=== PATIENT | female | born 1955 | race Caucasian/White ===

== ENCOUNTER → 2020-12-14 10:51 | Outpatient (CLI) | payer MEDICARE, OTHER, SELFPAY | PROVIDERS: Referring Provider Internal Medicine; Visit Provider Internal Medicine | DX: M85.852 Other specified disorders of bone density and structure, left thigh; Z78.0 Asymptomatic menopausal state; Z13.820 Encounter for screening for osteoporosis | CPT/HCPCS: 77080 ==

== ENCOUNTER → 2021-01-15 07:25 | Outpatient (CLI) | payer MEDICARE, OTHER, SELFPAY ==
--- NOTE | 2021-01-15 | DI.MG.S_ITS ---
BILATERAL DIGITAL SCREENING MAMMOGRAM 3D/2D WITH CAD: 01/15/2021 CLINICAL: Baseline exam. Routine screening. No prior exams were available for comparison. There are scattered fibroglandular elements in both breasts. Current study was also evaluated with a Computer Aided Detection (CAD) system. No significant masses, calcifications, or other findings are seen in either breast. IMPRESSION: NEGATIVE There is no mammographic evidence of malignancy. A 1 year screening mammogram is recommended. This exam was interpreted at Station ID: [id number]. NOTE: For mammograms, a report in lay terms will be sent to the patient. Approximately 15% of breast malignancies will not be visualized mammographically. In the management of a palpable breast mass, a negative mammogram must not discourage biopsy of a clinically suspicious lesion. Electronically Signed By: Conor barrow/obey:01/15/2021 08:36:52 letter sent: Normal Exam ACR BI-RADS Category 1: Negative 3341F
== END ==
PROVIDERS: PCP Internal Medicine; Referring Provider Internal Medicine; Visit Provider Internal Medicine
DX: Z12.31 Encounter for screening mammogram for malignant neoplasm of breast (principal)
CPT/HCPCS: 77063; 77067

== ENCOUNTER → 2022-01-14 10:23 | Outpatient (CLI) | payer MEDICARE, OTHER, SELFPAY ==
--- NOTE | 2022-01-14 | DI.RAD.S_ITS ---
PROCEDURE: XR CHEST 2V INDICATIONS: shortness of breath TECHNIQUE: 2 views of the chest were acquired. COMPARISON: None. FINDINGS: Surgical changes and devices: None. Lungs and pleura: Lungs are clear. No pleural effusions or pneumothorax. Mediastinum: Mediastinal contours are normal. Heart size is normal. Bones and chest wall: No suspicious bony abnormalities. Soft tissues appear unremarkable. IMPRESSION: No acute cardiopulmonary disease. Dictated by: Marly Kirkland M.D. on 01/14/2022 at 17:23 Approved by: Marly Kirkland M.D. on 01/14/2022 at 17:23
== END ==
PROVIDERS: PCP Internal Medicine; Referring Provider Internal Medicine; Visit Provider Internal Medicine
DX: R06.02 Shortness of breath (principal)
CPT/HCPCS: 71046

== ENCOUNTER → 2022-02-05 10:49 | Outpatient (CLI) | payer MEDICARE, OTHER, SELFPAY ==
[2022-02-05 12:19] LABS: COVID19 -Nasal RAPID Negative (Negative)
== END ==
PROVIDERS: PCP Internal Medicine; Referring Provider Internal Medicine; Visit Provider Internal Medicine
DX: Z20.822 Contact with and (suspected) exposure to COVID-19 (principal)
CPT/HCPCS: 87635; C9803

== ENCOUNTER → 2022-02-05 10:51 | Outpatient (CLI) | payer MEDICARE, OTHER, SELFPAY ==
--- NOTE | 2022-02-07 07:53 | PM.PFT.1 ---
Pulmonary Function Test Referral & Results Date Patient Seen: 02/05/22 Requesting provider: Jay Johnson Results: The spirometry demonstrates an FVC of 2.99 L which is 96% of predicted. The FEV1 was measured at 2.29 L which is 96% of predicted. The FEV1/FVC ratio was 76 which is 99% of predicted. Following the administration of bronchodilator there was a 61% improvement in FEF 25-75%. Lung volumes show an SVC of 2.84 L which is 97% of predicted. The diffusing capacity was measured at 24.02 which is 99% of predicted. The maximum voluntary ventilation was normal Interpretation: This study demonstrates normal pulmonary function
== END ==
PROVIDERS: PCP Internal Medicine; Referring Provider Internal Medicine; Visit Provider Internal Medicine
DX: J45.901 Unspecified asthma with (acute) exacerbation (principal); J98.8 Other specified respiratory disorders; Z20.822 Contact with and (suspected) exposure to COVID-19
CPT/HCPCS: 87635; 94060; 94726; 94729; C9803

== ENCOUNTER → 2022-07-16 10:17 | Outpatient (CLI) | payer MEDICARE, OTHER, SELFPAY ==
--- NOTE | 2022-07-17 01:04 | DI.NM.S_ITS ---
DATE OF SERVICE: 07/16/2022 PROCEDURE PERFORMED: Exercise treadmill stress and rest myocardial perfusion imaging with gating to assess ejection fraction and regional wall motion. ORDERING PROVIDER: Marleny Lemus MD. INDICATIONS: The patient is a 67-year-old female with exertional dyspnea and chest discomfort. CARDIAC STRESS: The patient was able to exercise for 7 minutes 5 seconds on a standard Bernardo protocol suggesting very good exercise capacity with an VINICIUS of - 17%, achieving 7.2 METs. She had a normal heart rate and blood pressure response to exercise, achieving a maximum heart rate of 155 BPM (101% of her predicted maximum). She had no chest discomfort or anginal symptoms. Her resting ECG is normal and there are no significant ST-segment shifts or arrhythmias with stress. At 3 minutes, 30 seconds of exercise at a heart rate of 130 BPM, 27.2 millicuries of technetium-99m Myoview was injected and she was imaged 20 minutes later using a gated SPECT acquisition protocol. Earlier in the day while at rest, she had been injected with 12.3 millicuries of technetium-99m Myoview and was imaged 15 minutes later, again using a gated SPECT acquisition protocol. FINDINGS: 1. Raw data: There is fair myocardial tracer uptake with mild breast shadows noted as well as some slight motion noted on the resting images. The lung/heart ratio is normal at 0.35 with a normal TID ratio of 0.85. 2. Quantitated gated SPECT: Post-stress ejection fraction is estimated at 85% without any focal wall motion abnormality. Resting ejection fraction is 82% with a normal resting end-diastolic volume of 83 mL. There is mildly increased tracer uptake in the right ventricular free wall, which can be an indication of a right ventricular overload condition, but is nonspecific. 3. Myocardial perfusion imaging: Post-stress supine images shows a fairly normal myocardial perfusion pattern without any perfusion defects, supported by normal perfusion imaging in the prone position. The resting images show an identical perfusion pattern without any areas of improvement. IMPRESSION: 1. Normal myocardial perfusion study. 2. No evidence of myocardial ischemia or previous myocardial infarction. 3. Normal left ventricular size and function without focal abnormality. There is mild increased tracer uptake in the right ventricle which can be a sign of her right ventricular overload condition but clinical correlation is needed. 4. Very good exercise capacity without angina or ECG evidence of ischemia. There were no arrhythmias. Bella Moraes - Yovany/saud doc#: [id number]/job#: [id number] dd: 07/16/2022 16:24:00 dt: 07/17/2022 00:57:00 DICTATING MD/COPIES TO: Jay Castellon MD; Marleny Lemus MD COPIES MNE: LATOSHA;
== END ==
PROVIDERS: PCP Internal Medicine; Referring Provider Internal Medicine; Visit Provider Internal Medicine
DX: R07.89 Other chest pain (principal); R06.00 Dyspnea, unspecified
CPT/HCPCS: 78452; 93017; A9502

== ENCOUNTER → 2022-07-25 10:09 | Outpatient (CLI) | payer MEDICARE, OTHER, SELFPAY ==
[2022-07-25 10:42] LABS: Estimated Glomerular Filt Rate > 60 mL/min (>60)
--- NOTE | 2022-07-25 10:49 | DI.CT.S_ITS ---
PROCEDURE: CT ANGIO CHEST PE PROTOCOL INDICATIONS: PULMONARY EMBOLISM SUSPECTED TECHNIQUE: After the administration of intravenous contrast, 2 mm thick sections acquired from the pulmonary apices to the posterior costophrenic angles. 3-dimensional maximum intensity projection (MIP) coronal and sagittal reformats were then acquired through the thorax. For radiation dose reduction, the following was used: automated exposure control, adjustment of mA and/or kV according to patient size. COMPARISON: [facility], CR, XR CHEST 2V, 01/14/2022, 11:38. FINDINGS: Image quality: Excellent. Pulmonary arteries: Pulmonary arteries are normal in size, and demonstrate no intraluminal filling defects to suggest central pulmonary embolism. Lungs and pleura: Minimal bilateral ground-glass opacity. No consolidative opacity. No pleural effusions or pneumothorax. Central and peripheral airways are patent. Mediastinum: Heart size is normal, without pericardial effusion. No mediastinal or hilar adenopathy. Thoracic aorta is normal in caliber and enhancement. Esophagus is normal in caliber, possible small hiatal hernia. Bones and chest wall: No suspicious bony lesions. Ribs and thoracic spine appear intact throughout. Right thyroid nodule measuring 1.2 cm, (4/2). No axillary or supraclavicular adenopathy. Abdomen: Visualized upper abdominal solid organs appear normal in the early arterial phase of enhancement. Gallstone measuring 1.8 cm. IMPRESSION: 1. No pulmonary embolism. No aortic dissection. 2. Minimal bilateral ground-glass opacity. This could be due to infectious/inflammatory etiology or atelectasis. 3. Right thyroid nodule measuring 1.2 cm. Consider thyroid ultrasound for further evaluation. Dictated by: Conor Vela M.D. on 07/25/2022 at 11:03 Approved by: Conor Vela M.D. on 07/25/2022 at 11:11
== END ==
PROVIDERS: Specialist; PCP Internal Medicine; Referring Provider Internal Medicine; Visit Provider Internal Medicine
DX: R07.2 Precordial pain (principal); E04.1 Nontoxic single thyroid nodule
CPT/HCPCS: 36415; 71275; 82565; Q9967

== ENCOUNTER → 2022-07-29 11:41 | Outpatient (CLI) | payer MEDICARE, OTHER, SELFPAY ==
[2022-07-29 11:59] LABS: Add Manual Diff / Slide Review NO; Basophils Absolute Auto 100 /uL (0-100); Eosinophils Absolute Auto 0 /uL (0-450); Eosinophils Percent Auto 0.4 % (2-4); Hematocrit 41.2 % (36-46); Hemoglobin 14.3 g/dL (12.0-16.0); Lymphocytes Absolute Auto 1500 /uL (1100-4500); Lymphocytes Percent Auto 26.5 % (25-40); Mean Corpuscular HGB Conc 34.8 % (30-36); Mean Corpuscular Hemoglobin 31.9 PG (26-34); Mean Corpuscular Volume 91.6 fL (80-100); Monocytes Absolute Auto 300 /uL (0-900); Monocytes Percent Auto 5.6 % (3-14); Neutrophils Absolute Auto 3800 /uL (1500-7000); Neutrophils Percent Auto 66.5 % (50-75); Platelet Count 274 X10^3/uL (150-400); White Blood Cell Count 5.7 X10^3/uL (4.5-11.0)
[2022-07-29 12:20] LABS: Alanine Aminotransferase 22 IU/L (<35); Albumin 4.4 g/dL (3.5-5.0); Albumin Globulin Ratio 1.4 (1.0-2.8); Alkaline Phosphatase 84 U/L (38-126); Aspartate Aminotransferase 28 IU/L (14-36); BUN Creatinine Ratio 18.1 (6-22); Bilirubin Total 0.4 mg/dL (0.2-1.3); Blood Urea Nitrogen 15 mg/dL (7-17); Calcium 8.9 mg/dL (8.4-10.2); Carbon Dioxide 27 mmol/L (22-32); Chloride 105 mmol/L (98-107); Creatine Kinase 34 U/L (30-135); Estimated Glomerular Filt Rate > 60 mL/min (>60); Globulin 3.2 g/dL (1.7-4.1); Glucose 104 mg/dL (80-110); HEMOLYSIS < 15 (0-50); Sodium 139 mmol/L (137-145); Total Protein 7.6 g/dL (6.3-8.2)
[2022-07-29 12:32] LABS: Troponin I < 0.012 ng/mL (0.01-0.034)
[2022-07-29 12:37] LABS: Procalcitonin < 0.03 ng/mL (<0.5)
== END ==
PROVIDERS: PCP Internal Medicine; Referring Provider Student in an Organized Health Care Education/Training Program; Visit Provider Student in an Organized Health Care Education/Training Program
DX: R07.9 Chest pain, unspecified (principal); R93.89 Abnormal findings on diagnostic imaging of other specified body structures; R05.9 Cough, unspecified; E04.1 Nontoxic single thyroid nodule
CPT/HCPCS: 36415; 80053; 82550; 84145; 84443; 84484; 85025

== ENCOUNTER → 2022-08-15 12:13 | Outpatient (CLI) | payer MEDICARE, OTHER, SELFPAY ==
--- NOTE | 2022-08-15 | DI.US.S_ITS ---
PROCEDURE: US THYROID INDICATIONS: Nontoxic single thyroid nodule TECHNIQUE: Real-time scanning was performed of the thyroid gland, with image documentation. COMPARISON: None. FINDINGS: Right: Thyroid lobe measures 4.6 x 1.8 x 1.7 cm, and is heterogeneous in echotexture. A dominant, finally septated, otherwise simple cyst measuring 1.2 cm is present in the deep midpole of the right thyroid. There are several other smaller mixed cystic and solid/spongiform nodules with scattered echogenic reflectors measuring up to 0.8 cm. Left: Thyroid lobe measures 3.5 x 1.5 x 1.1 cm, and is heterogeneous in echotexture. There is a 0.8 cm mm with dependently layering echogenic debris in the midportion of the left thyroid lobe. There is a mixed cystic and solid nodule measuring 0.7 cm also in the mid left thyroid punctate echogenic foci. Isthmus: Five mm thick. There are two mixed cystic and solid nodules within the isthmus measuring up to 0.6 cm. IMPRESSION: 1. Heterogeneous, nonenlarged multinodular thyroid gland with several subcentimeter mixed cystic and solid, some spongiform, nodules with TI-RADS score is ranging from 4-6, moderately suspicious. However given small size, no further follow-up is needed. ACR TI-RADS definitions and recommendations: TI-RADS 1 (benign): 0 points. FNA not needed. TI-RADS 2 (not suspicious): 2 points. FNA not needed. TI-RADS 3 (mildly suspicious): 3 points. * FNA if 2.5 cm or larger, follow up if 1.5 cm or larger (at 1, 3, and 5 years). TI-RADS 4 (moderately suspicious): 4-6 points. * FNA if 1.5 cm or larger, follow up if 1 cm or larger (at 1, 2, 3, and 5 years). TI-RADS 5 (highly suspicious): 7 points or more. * FNA if 1 cm or larger, follow up if 0.5 cm or larger (every year for 5 years). Dictated by: Marly Kirkland M.D. on 08/15/2022 at 23:20 Approved by: Marly Kirkland M.D. on 08/15/2022 at 23:32
== END ==
PROVIDERS: PCP Internal Medicine; Referring Provider Internal Medicine; Visit Provider Internal Medicine
DX: E04.2 Nontoxic multinodular goiter (principal)
CPT/HCPCS: 76536

== ENCOUNTER 2022-08-25 09:09 | Emergency (ER) | payer MEDICARE, OTHER, SELFPAY ==
[2022-08-25] VITALS (7 sets, daily range): BP systolic 133–174; BP diastolic 73–88; PULSE 80–102; RESP 11–17; TEMP 37.4; O2SAT 95–99; BMI 30.4
--- NOTE | 2022-08-25 09:20 | ED_ITS ---
HPI - Arrhythmia/Palpitations General Chief Complaint: Arrhythmia/Palpitations Stated Complaint: sent by [facility] heart issuses Time Seen by Provider: 08/25/22 09:20 History of Present Illness HPI narrative: Patient is a 67-year-old female without significant past medical history presenting today with heart palpitations. She is actually had significant workup it has been ongoing for last couple months. She would a nuclear stress test and a CT angio she is Cardiology tomorrow. However she reports feeling something and heart palpitations. She feels a little nauseous at times she has dizziness but she reports it is likely from her vertigo is not any worse today than normal. No other focal deficits. She is not passed out. She was able to walk this morning without stopping. However she reports she did not go up any heels. She would a normal nuclear stress test in July and a normal CT angio in July as well. She is not yet had an echocardiogram. She is noted to have frequent PACs on the monitor. She reports that she was also diagnosis thyroid problem. Related Data Allergies Allergy/AdvReac Type Severity Reaction Status Date / Time No Known Drug Allergies Allergy Unverified 07/29/22 08:57 Review of Systems Review of Systems ROS Unobtainable: All systems reviewed & are unremarkable except as noted in HPI and below Patient History Social History Smoking Status: Unknown if ever smoked Smoking Status: Unknown if ever smoked Exam Initial Vital Signs Initial Vital Signs: Vital Signs Pulse Rate 102 H 08/25/22 09:13 Pulse Oximetry 99 08/25/22 09:13 GENERAL: Alert pleasant 67-year-old female and in no acute distress. HEENT: Head atraumatic,EOMI, pupils reactive, face symmetric, moist mucous membranes CARDIOVASCULAR: Regular rate and rhythm without murmurs, rubs or gallops. RESPIRATORY: Breath sounds equal bilaterally, no wheezes rales or rhonchi. ABDOMEN: Soft, nontender. Normoactive bowel sounds all 4 quadrants. No guarding or rebound. EXTREMITIES: Normal range of motion, no clubbing or edema. Neurovascularly intact NEUROLOGICAL: Alert and oriented x4. SKIN: Warm, dry, no laceration, no petechiae, no rashes or lesions. Course Orders Ordered: ED Orders 08/25/22 09:18 Complete Blood Count AUTO DIFF Stat Comprehensive Metabolic Panel Stat Lipase Stat Magnesium Stat PTT Partial Thromboplastin Pillo Stat Prothrombin Time INR Stat Troponin & CK Cardiac Panel Stat 08/25/22 09:27 XR chest 1V Stat 08/25/22 11:04 EKG-12 Lead Stat Vital Signs Vital signs: Vital Signs - 8 hr 08/25/22 09:16 08/25/22 09:13 08/25/22 09:14 Temperature 99.3 F Pulse Rate 99 H 102 H Respiratory Rate 16 Blood Pressure 174/88 H 174/88 H Pulse Oximetry 99 99 Oxygen Delivery Method Room Air 08/25/22 09:14 08/25/22 09:30 08/25/22 09:30 Temperature Pulse Rate 101 H 81 Respiratory Rate 16 11 L Blood Pressure 133/73 Pulse Oximetry 99 95 Oxygen Delivery Method 08/25/22 10:00 08/25/22 10:00 08/25/22 10:17 Temperature Pulse Rate 80 Respiratory Rate 13 Blood Pressure 135/74 165/81 H Pulse Oximetry 97 Oxygen Delivery Method 08/25/22 10:17 08/25/22 10:30 08/25/22 10:30 Temperature Pulse Rate 85 82 Respiratory Rate 17 12 Blood Pressure 138/73 Pulse Oximetry 99 97 Oxygen Delivery Method Room Air MDM - Arrhythmia/Palpitations Lab Data 08/25/22 09:18 08/25/22 09:18 Labs: Lab Results 08/25/22 08/25/22 08/25/22 Range/Units 09:18 09:18 09:18 WBC 5.2 (4.5-11.0) X10^3/uL RBC 4.58 (4.0-5.2) X10^6/uL Hgb 14.7 (12.0-16.0) g/dL Hct 41.9 (36-46) % MCV 91.5 (80-100) fL MCH 32.0 (26-34) PG MCHC 35.0 (30-36) % RDW 13.2 (11.6-14.8) % Plt Count 263 (150-400) X10^3/uL Neut % (Auto) 73.0 (50-75) % Lymph % (Auto) 20.2 L (25-40) % [place] % (Auto) 5.6 (3-14) % Eos % (Auto) 0.2 L (2-4) % Baso % (Auto) 1.0 (0-2) % Neut # (Auto) 3800 (3806-5882) /uL Lymph # (Auto) 1000 L (8261-0933) /uL [place] # (Auto) 300 (0-900) /uL Eos # (Auto) 0 (0-450) /uL Baso # (Auto) 100 (0-100) /uL PT 11.6 (10.1-12.7) SECONDS INR 1.0 (0.9-1.3) APTT 35 (26-36) SECONDS Sodium 139 (137-145) mmol/L Potassium 3.8 (3.4-5.1) mmol/L Chloride 104 (98-107) mmol/L Carbon Dioxide 26 (22-32) mmol/L BUN 19 H (7-17) mg/dL Creatinine 0.79 (0.52-1.04) mg/dL Estimated GFR > 60 (>60) mL/min BUN/Creatinine Ratio 24.1 H (6-22) Glucose 110 (80-110) mg/dL Calcium 8.9 (8.4-10.2) mg/dL Magnesium 2.1 (1.6-2.3) mg/dL Total Bilirubin 0.3 (0.2-1.3) mg/dL AST 28 (14-36) IU/L ALT 25 (<35) IU/L Alkaline Phosphatase 89 (38-126) U/L Total Creatine Kinase 30 (30-135) U/L Troponin I < 0.012 (0.01-0.034) ng/mL Total Protein 7.8 (6.3-8.2) g/dL Albumin 4.6 (3.5-5.0) g/dL Globulin 3.2 (1.7-4.1) g/dL Albumin/Globulin Ratio 1.4 (1.0-2.8) Lipase 144 (23-300) U/L Imaging Data Chest x-ray: Radiologist's Impresson: PROCEDURE:? XR CHEST 1V ? INDICATIONS:? chest pain ? TECHNIQUE:? One view of the chest was acquired.? ? COMPARISON:? [facility], CR, XR CHEST 2V, 01/14/2022, 11:38. ? FINDINGS:? ? Surgical changes and devices:? None.? ? Lungs and pleura:? Lungs are clear.? No pleural effusions or pneumothorax.? ? Mediastinum:? Mediastinal contours appear normal.? Heart size is normal.? ? Bones and chest wall:? No suspicious bony lesions.? Overlying soft tissues appear unremarkable.? ? IMPRESSION:? No evidence acute pulmonary process. ? ? ? Dictated by: Forest Brenner M.D. on 08/25/2022 at 10:27 ECG Data Interpretation: Normal sinus rhythm rate 94 NJ interval 144 QRS 80 QTC [address] changes MDM Narrative Medical decision making narrative: Patient is 67-year-old female presenting today with palpitations. She does appear to have PVCs on the monitor and her EKG regularly but certainly not in bigeminy or trigeminy. No other significant symptoms she is dizzy but chronically dizzy does not to be any worse. She is had a nuclear stress test last month and a CT angio last month as well. She will likely need an echocardiogram but not emergency today. Having signs or symptoms of pericardial effusion or pericarditis. Appointment with Cardiology tomorrow. At this time no need for any further urgent workup or evaluation. There is no evidence of electrolyte abnormality ANGEL elevation of troponin leukocytosis or anemia. Chest x-ray is also negative. Discharge Plan Departure Patient Disposition: Home Clinical Impression: Frequent PVCs Instructions: Premature Ventricular Beats Activity Restrictions/Additional Instructions: *You have been diagnosed with PVCs *What to do: At this time please follow-up with Cardiology tomorrow as scheduled. May need echocardiogram which has yet to be done *Continue to take medications as directed *Follow up with your primary care provider in 2-3 days or call [phone] *Return to ER if you should have increasing chest pain passing out dizziness or any new, worsening or concerning symptoms Referrals: Sangeeta Jin MD [Physician] - Marleny Lemus MD [Primary Care Provider] - Stand Alone Forms: Patient Portal/API
--- NOTE | 2022-08-25 09:27 | DI.RAD.S_ITS ---
PROCEDURE: XR CHEST 1V INDICATIONS: chest pain TECHNIQUE: One view of the chest was acquired. COMPARISON: [facility], CR, XR CHEST 2V, 01/14/2022, 11:38. FINDINGS: Surgical changes and devices: None. Lungs and pleura: Lungs are clear. No pleural effusions or pneumothorax. Mediastinum: Mediastinal contours appear normal. Heart size is normal. Bones and chest wall: No suspicious bony lesions. Overlying soft tissues appear unremarkable. IMPRESSION: No evidence acute pulmonary process. Dictated by: Forest Brenner M.D. on 08/25/2022 at 10:27 Approved by: Forest Brenner M.D. on 08/25/2022 at 10:27
[2022-08-25 09:33] LABS: Add Manual Diff / Slide Review NO; Basophils Absolute Auto 100 /uL (0-100); Eosinophils Absolute Auto 0 /uL (0-450); Eosinophils Percent Auto 0.2 % (2-4); Hematocrit 41.9 % (36-46); Hemoglobin 14.7 g/dL (12.0-16.0); Lymphocytes Absolute Auto 1000 /uL (1100-4500); Lymphocytes Percent Auto 20.2 % (25-40); Mean Corpuscular Volume 91.5 fL (80-100); Monocytes Absolute Auto 300 /uL (0-900); Monocytes Percent Auto 5.6 % (3-14); Neutrophils Absolute Auto 3800 /uL (1500-7000); Platelet Count 263 X10^3/uL (150-400); Red Blood Cell Count 4.58 X10^6/uL (4.0-5.2); Red Cell Distribution Width 13.2 % (11.6-14.8); White Blood Cell Count 5.2 X10^3/uL (4.5-11.0)
[2022-08-25 09:44] LABS: Alanine Aminotransferase 25 IU/L (<35); Albumin 4.6 g/dL (3.5-5.0); Albumin Globulin Ratio 1.4 (1.0-2.8); Alkaline Phosphatase 89 U/L (38-126); Aspartate Aminotransferase 28 IU/L (14-36); BUN Creatinine Ratio 24.1 (6-22); Bilirubin Total 0.3 mg/dL (0.2-1.3); Blood Urea Nitrogen 19 mg/dL (7-17); Calcium 8.9 mg/dL (8.4-10.2); Carbon Dioxide 26 mmol/L (22-32); Chloride 104 mmol/L (98-107); Creatine Kinase 30 U/L (30-135); Estimated Glomerular Filt Rate > 60 mL/min (>60); Globulin 3.2 g/dL (1.7-4.1); Glucose 110 mg/dL (80-110); HEMOLYSIS < 15 (0-50); Lipase 144 U/L (23-300); Magnesium 2.1 mg/dL (1.6-2.3); Potassium 3.8 mmol/L (3.4-5.1); Sodium 139 mmol/L (137-145); Total Protein 7.8 g/dL (6.3-8.2)
[2022-08-25 09:56] LABS: Troponin I < 0.012 ng/mL (0.01-0.034)
[2022-08-25 10:15] LABS: PTT Partial Thromboplastin Tim 35 SECONDS (26-36)
[2022-08-25 10:17] LABS: Prothrombin Time 11.6 SECONDS (10.1-12.7)
== END 2022-08-25 10:49 | disposition home or self-care (01) ==
PROVIDERS: Emergency Provider Emergency Medicine; PCP Internal Medicine
DX: I49.3 Ventricular premature depolarization (principal); R07.9 Chest pain, unspecified
CPT/HCPCS: 36415; 71045; 80053; 82550; 83690; 83735; 84484; 85025; 85610; 85730; 93005; 99284

== ENCOUNTER → 2022-09-04 06:50 | Outpatient (CLI) | payer MEDICARE, OTHER, SELFPAY ==
--- NOTE | 2022-09-04 | DI.ECHO.S_ITS ---
[facility] +---------+ : : [address] : [place] : : : : [id number] : : : : Phone: [phone]---------+ Echocardiogram Report + + :Name: KEISHA LOU Study Date: 09/04/2022 Height: 63 in : :[facility] ReadingLocation: Weight: 183 lb : : Gender: Female BSA: 1.9 m2 : :: 1955 Age: 67 yrs BP: 140/89 mmHg: :Reason For Study: Other forms of Dyspnea : :Ordering Physician: SATHISH, : :TARUN Performed By: Ludy Tony : :Referring: TARUN JIN : + + Interpretation Summary 1) Normal left ventricular thickness, size, wall motion, and systolic function (EF 55-60%). 2) Normal right ventricular size and function. 3) No significant valvular abnormalities. 4) No prior Echo available for comparison. Procedure: A two-dimensional transthoracic echocardiogram with color flow and Doppler was performed. The study quality was technically adequate. There is no prior echocardiogram noted for this patient. The patient was in normal sinus rhythm during the exam. The patient had occasional PVCs during the exam. Left Ventricle: The left ventricle is normal in size and wall thickness. The ejection fraction is estimated to be 55-60%. Left ventricular systolic function appears normal without focal wall motion abnormalities. Diastolic parameters suggest a relaxation abnormality of the left ventricle, consistent with probable normal filling pressures. Right Ventricle: The right ventricle is normal size. The right ventricular systolic function is normal. Atria: The left atrial size is normal. Right atrial size is normal. There is no Doppler evidence for an interatrial shunt. Mitral Valve: The mitral valve is normal. There is no mitral valve stenosis. There is trace mitral regurgitation. Aortic Valve: The aortic valve is trileaflet. There is mild aortic valve sclerosis. The aortic valve opens well. There is no aortic valve stenosis. No aortic regurgitation is present. Tricuspid Valve: The tricuspid valve is normal. There is no tricuspid stenosis. There is trace tricuspid regurgitation. Pulmonary artery pressures cannot be estimated because of the lack of a measurable TR jet velocity. Pulmonic Valve: The pulmonic valve leaflets are thin and pliable; valve motion is normal. There is no pulmonic valvular stenosis. There is no pulmonic valvular regurgitation. Great Vessels: The aortic root is normal size. The ascending aorta is normal in size. The pulmonary artery is normal size. The IVC is of normal diameter and collapses greater than 50% with a sniff. This suggests a low right atrial pressure of 3 mm Hg. Pericardium/ Pleura There is no pericardial effusion. There is no pleural effusion. MMode/2D Measurements & Calculations LVIDd: 4.4 cm LVOT diam: 1.8 cm LVIDs: 3.1 cm Ao root diam: 2.7 cm FS: 29.5 % asc Aorta Diam: 3.1 cm EPSS: 0.50 cm IVSd: 0.90 cm LVPWd: 0.90 cm LV navarro. diameter/BSA (cm/m^2): 2.4 LV sys. diameter/BSA (cm/m^2): 1.7 LA A2 area: 18.8 cm2 RA long axis: 4.4 cm LA A4 area: 9.6 cm2 RA area: 12.2 cm2 LA length (vol): 5.7 cm RA vol: 28.6 ml LA vol: 27.1 ml RA : 15.3 ml/m2 LA vol index: 14.5 ml/m2 RVD1 (basal): 3.5 cm LVLs ap4: 5.2 cm LVLd ap2: 6.9 cm TAPSE_phl: 2.5 cm LVLs ap2: 5.0 cm Doppler Measurements & Calculations Ao V2 max: 152.0 cm/sec LVOT Max Tonny: 132.0 cm/sec Ao V2 mean: 107.0 cm/sec LV V1 max P.0 mmHg Ao max P.0 mmHg LV V1 VTI: 26.4 cm Ao mean P.0 mmHg JACKY(I,D): 2.0 cm2 Ao V2 VTI: 33.6 cm JACKY(V,D): 2.2 cm2 sev ratio: 0.79 JACKY indexed to BSA (cm^2/m^2): 1.1 MV E max tonny: 93.6 cm/sec PA V2 max: 104.0 cm/sec MV A max tonny: 93.0 cm/sec PA V2 mean: 76.5 cm/sec MV E/A: 1.0 PA mean P.0 mmHg Med Peak E' Tonny: 7.1 cm/sec PA pr(Accel): 6.5 mmHg E/E' med: 13.3 Lat Peak E' Tonny: 11.5 cm/sec E/E' lat: 8.1 E/e' average: 10.7 MV dec time: 0.29 sec SV(LVOT): 67.2 ml AV VR_phl: 0.87 JACKY(VTI)/BSA_phl: 1.1 MV P1/2t-pr_phl: 84.0 msec Reading Physician:10:04 AM
== END ==
PROVIDERS: PCP Internal Medicine; Referring Provider Internal Medicine Cardiovascular Disease; Visit Provider Internal Medicine Cardiovascular Disease
DX: I35.8 Other nonrheumatic aortic valve disorders (principal); R06.09 Other forms of dyspnea; I49.3 Ventricular premature depolarization
CPT/HCPCS: 93306

== ENCOUNTER → 2022-09-30 11:15 | Outpatient (CLI) | payer MEDICARE, OTHER, SELFPAY ==
[2022-10-01 14:47] LABS: Fecal Immunochemical Test Negative (Negative)
== END ==
PROVIDERS: PCP Internal Medicine; Referring Provider Internal Medicine; Visit Provider Internal Medicine
DX: Z12.11 Encounter for screening for malignant neoplasm of colon (principal)
CPT/HCPCS: 82274

== ENCOUNTER → 2022-10-30 07:54 | Outpatient (CLI) | payer MEDICARE, OTHER, SELFPAY ==
[2022-10-30 10:40] LABS: Free T4, Direct Thyroxine 1.35 ng/dL (0.78-2.19)
[2022-10-30 10:54] LABS: TSH w/ Reflex to FT4 1.48 uIU/mL (0.47-4.68)
== END ==
PROVIDERS: PCP Internal Medicine; Referring Provider Internal Medicine; Visit Provider Internal Medicine
DX: Z78.9 Other specified health status (principal)
CPT/HCPCS: 36415; 84439; 84443

== ENCOUNTER → 2022-12-01 09:33 | Outpatient (CLI) | payer MEDICARE, OTHER, SELFPAY ==
[2022-12-01 10:30] LABS: Cholesterol 244 mg/dL (140-199); HDL Cholesterol 50 mg/dL (40-60); LDL Cholesterol Calculated 167 mg/dL (<100); Triglycerides 137 mg/dL (35-150)
== END ==
PROVIDERS: PCP Internal Medicine; Referring Provider Internal Medicine; Visit Provider Internal Medicine
DX: E78.2 Mixed hyperlipidemia (principal)
CPT/HCPCS: 36415; 80061

== ENCOUNTER → 2023-01-09 10:02 | Outpatient (CLI) | payer MEDICARE, OTHER, SELFPAY ==
--- NOTE | 2023-01-09 | DI.MG.S_ITS ---
BILATERAL DIGITAL SCREENING MAMMOGRAM 3D/2D WITH CAD: 01/09/2023 CLINICAL: Routine screening. Comparison is made to exam dated: 01/15/2021 mammogram - [facility]. There are scattered areas of fibroglandular density in both breasts (category b / 25%-50% glandular tissue). Current study was also evaluated with a Computer Aided Detection (CAD) system. No significant masses, calcifications, or other findings are seen in either breast. IMPRESSION: NEGATIVE There is no mammographic evidence of malignancy. A 1 year screening mammogram is recommended. Based on the Tyrer Cuzick model (a risk assessment model) the patient's lifetime risk is 5.2% and her 10 year risk is 2.7%. According to the ACR, ACS, and NCCN guidelines, an annual breast MRI exam along with mammogram is recommended if the patient's lifetime risk is 20% or greater. This exam was interpreted at Station ID: [id number]. NOTE: For mammograms, a report in lay terms will be sent to the patient. Approximately 15% of breast malignancies will not be visualized mammographically. In the management of a palpable breast mass, a negative mammogram must not discourage biopsy of a clinically suspicious lesion. Electronically Signed By: Liyah Mayer M.D., PH.D ananth/penrad:01/10/2023 10:47:00 letter sent: Normal Exam ACR BI-RADS Category 1: Negative 3341F
--- NOTE | 2023-01-09 10:04 | DI.RAD.S_ITS ---
Bone Density Report Name: KEISHA LOU Age: 67 Sex: Female Ethnicity: White Date of : 1955 Indication: osteopenia; Referring Provider: YUAN FREEMAN Study: Bone densitometry was performed. Exam Date: January 09, 2023 Accession number: [id number] Bone Density: Region BMD T-score Z-score Classification AP Spine(L1-L4) 0.806 -2.2 -0.2 Osteopenia Femoral Neck (Left) 0.666 -1.7 0.0 Osteopenia Total Hip (Left) 0.727 -1.8 -0.4 Osteopenia Femoral Neck (Right) 0.653 -1.8 -0.1 Osteopenia Total Hip (Right) 0.720 -1.8 -0.4 Osteopenia Total Hip Mean 0.723 -1.8 -0.4 Osteopenia World Health Organization criteria for BMD impression classify patients as: Normal (T-score at or above -1.0), Osteopenia (T-score between -1.0 and -2.5), or Osteoporosis (T-score at or below -2.5). 10-year Fracture Risk(1): Major Osteoporotic Fracture 9.8% Hip Fracture 1.4% Reported Risk Factors: [place] (), Neck BMD=0.653, BMI=31.0 (1) FRAX(R) Version 3.08. Fracture probability calculated for an untreated patient. Fracture probability may be lower if the patient has received treatment. Previous Exams: -- Region Exam Age BMD T-score BMD Change BMD Change Date g/cm2 vs Baseline vs Previous -- AP Spine (L1-L4) 01/09/2023 67 0.806 -2.2 -0.040 (-4.7%)# -0.040 (-4.7%)# 12/14/2020 65 0.846 -1.8 Total Hip(Left) 01/09/2023 67 0.727 -1.8 0.027 (3.9%)# 0.027 (3.9%)# 12/14/2020 65 0.700 -2.0 Total Hip(Right) 01/09/2023 67 0.720 -1.8 0.021 (2.9%)# 0.021 (2.9%)# 12/14/2020 65 0.699 -2.0 -- *Denotes significance at 95% confidence level, LSC for AP Spine = 0.022 g/cm2, LSC for Total Hip = 0.027 g/cm2 # Denotes dissimilar scan types or analysis methods Impression: The patient has low bone mass, based on the Total Spine T-score. The patient has an estimated ten-year risk of hip fracture of 1.4% and an estimated ten-year risk of major fracture of 9.8%, based on the WHO FRAX algorithm. No significant bone loss was observed. Discussion: BONE DENSITY IS LOW AT ONE OR MORE SKELETAL SITES. This patient's lowest T-score is low at one or more skeletal sites. It meets the World Health Organization's (WHO) criteria for low bone mass (T-score between -1.0 and -2.5). The patient's 10-year risk of fracture as calculated by FRAX is less than the threshold where pharmacological therapy is recommended by the National Osteoporosis Foundation (NOF). However, all treatment decisions require clinical judgment and consideration of individual patient factors, including patient preferences, comorbidities, previous drug use, risk factors not captured in the FRAX model (e.g., frailty, falls, vitamin D deficiency, increased bone turnover, interval significant decline in bone density) and possible under or overestimation of fracture risk by FRAX. The patient should follow a healthful lifestyle (good nutrition with adequate calcium and vitamin D, and appropriate weight-bearing exercise). Follow-Up: Consider repeating this study in 2 to 3 years to reassess this patient's status, or sooner if there is some new clinical indication. Reported by: CARLOS DALLAS M.D. on 01/09/2023 10:52:00 AM.
== END ==
PROVIDERS: PCP Internal Medicine; Referring Provider Internal Medicine; Visit Provider Internal Medicine
DX: Z78.0 Asymptomatic menopausal state (principal); Z12.31 Encounter for screening mammogram for malignant neoplasm of breast; M85.88 Other specified disorders of bone density and structure, other site
CPT/HCPCS: 77063; 77067; 77080

== ENCOUNTER → 2023-01-30 10:08 | Outpatient (CLI) | payer MEDICARE, OTHER, SELFPAY ==
[2023-01-30 11:11] LABS: Vitamin D 25 Hydroxy (D3) 45.6 ng/mL (30.0-100.0)
== END ==
PROVIDERS: PCP Internal Medicine; Referring Provider Internal Medicine; Visit Provider Internal Medicine
DX: E55.9 Vitamin D deficiency, unspecified (principal)
CPT/HCPCS: 36415; 82306

== ENCOUNTER → 2023-05-05 14:31 | Outpatient (CLI) | payer MEDICARE, OTHER, SELFPAY ==
[2023-05-05 16:58] LABS: Influenza A - CEPHEID Flu A NEGATIVE (NEGATIVE); Influenza B - CEPHEID Flu B NEGATIVE (NEGATIVE); Respiratory Syncytial Virus Negative (Negative)
[2023-05-05 17:01] LABS: COVID-19 CEPHEID 4-PLEX PCR Negative (Negative)
== END ==
PROVIDERS: PCP Internal Medicine; Visit Provider Internal Medicine
DX: R05.1 Acute cough (principal); B34.9 Viral infection, unspecified
CPT/HCPCS: 0241U

== ENCOUNTER → 2023-08-12 09:48 | Outpatient (CLI) | payer MEDICARE, OTHER, SELFPAY ==
--- NOTE | 2023-08-12 | DI.RAD.S_ITS ---
PROCEDURE: XR SINUS <3V INDICATIONS: Chronic sinusitis, unspecified TECHNIQUE: 3 views of the sinuses were acquired. COMPARISON: None. FINDINGS: Sinuses: The visualized sinuses demonstrate no air-fluid levels or mucosal thickening. The visualized mastoids also appear clear. Bones: No suspicious bony lesions. Nasal septum is midline. IMPRESSION: No air-fluid levels to suggest acute sinusitis. Approved by: Felton Cee M.D. on 08/12/2023 at 18:17
== END ==
LOC: RAD 09:51
PROVIDERS: PCP Internal Medicine; Referring Provider Physician Assistant; Visit Provider Physician Assistant
DX: J32.9 Chronic sinusitis, unspecified (principal)
CPT/HCPCS: 70210

== ENCOUNTER → 2024-02-22 08:14 | Outpatient (CLI) | payer MEDICARE, OTHER, SELFPAY ==
--- NOTE | 2024-02-22 08:20 | DI.MG.S_ITS ---
BILATERAL DIGITAL SCREENING MAMMOGRAM 3D/2D WITH CAD: 02/22/2024 CLINICAL: Routine screening. Comparison is made to exams dated: 01/09/2023 mammogram and 01/15/2021 mammogram - [facility]. There are scattered areas of fibroglandular density (category b / 25%-50% glandular tissue). Current study was also evaluated with a Computer Aided Detection (CAD) system. No significant masses, calcifications, or other findings are seen in either breast. There has been no significant interval change. IMPRESSION: NEGATIVE There is no mammographic evidence of malignancy. A 1 year screening mammogram is recommended. Based on the Tyrer Cuzick model (a risk assessment model) the patient's lifetime risk is 4.7% and her 10 year risk is 2.8%. According to the ACR, ACS, and NCCN guidelines, an annual breast MRI exam along with mammogram is recommended if the patient's lifetime risk is 20% or greater. This exam was interpreted at Station ID: [id number]. NOTE: For mammograms, a report in lay terms will be sent to the patient. Approximately 15% of breast malignancies will not be visualized mammographically. In the management of a palpable breast mass, a negative mammogram must not discourage biopsy of a clinically suspicious lesion. Electronically Signed By: Renard bustos/obey:02/22/2024 09:42:22 letter sent: Normal Exam ACR BI-RADS Category 1: Negative
== END ==
PROVIDERS: PCP Internal Medicine; Referring Provider Internal Medicine; Visit Provider Internal Medicine
DX: Z12.31 Encounter for screening mammogram for malignant neoplasm of breast (principal)
CPT/HCPCS: 77063; 77067

== ENCOUNTER → 2024-04-15 10:22 | Outpatient (CLI) | payer MEDICARE, OTHER, SELFPAY ==
[2024-04-15 10:47] LABS: Hematocrit 41.3 % (36-46); Hemoglobin 14.4 g/dL (12.0-16.0); Mean Corpuscular HGB Conc 34.8 % (30-36); Mean Corpuscular Hemoglobin 32.1 PG (26-34); Mean Corpuscular Volume 92.2 fL (80-100); Platelet Count 292 X10^3/uL (150-400); Red Blood Cell Count 4.48 X10^6/uL (4.0-5.2); Red Cell Distribution Width 12.9 % (11.6-14.8); White Blood Cell Count 5.2 X10^3/uL (4.5-11.0)
[2024-04-15 10:58] LABS: Alanine Aminotransferase 20 IU/L (<35); Albumin 4.5 g/dL (3.5-5.0); Albumin Globulin Ratio 1.5 (1.0-2.8); Alkaline Phosphatase 81 U/L (38-126); Aspartate Aminotransferase 28 IU/L (14-36); BUN Creatinine Ratio 17.2 (6-22); Bilirubin Total 0.5 mg/dL (0.2-1.3); Blood Urea Nitrogen 15 mg/dL (7-17); Calcium 8.7 mg/dL (8.4-10.2); Carbon Dioxide 27 mmol/L (22-32); Chloride 103 mmol/L (98-107); Cholesterol 241 mg/dL (140-199); Estimated Glomerular Filt Rate > 60 mL/min (>60); Globulin 3.1 g/dL (1.7-4.1); Glucose 100 mg/dL (80-110); HDL Cholesterol 46 mg/dL (40-60); HEMOLYSIS < 15 (0-50); LDL Cholesterol Calculated 158 mg/dL (<100); Potassium 4.1 mmol/L (3.4-5.1); Sodium 139 mmol/L (137-145); Total Protein 7.6 g/dL (6.3-8.2); Triglycerides 187 mg/dL (35-150)
[2024-04-15 11:30] LABS: TSH w/ Reflex to FT4 1.13 uIU/mL (0.47-4.68)
== END ==
PROVIDERS: PCP Internal Medicine; Referring Provider Internal Medicine; Visit Provider Internal Medicine
DX: E78.2 Mixed hyperlipidemia (principal); R10.11 Right upper quadrant pain
CPT/HCPCS: 36415; 80053; 80061; 84443; 85027

== ENCOUNTER → 2024-04-20 07:31 | Outpatient (CLI) | payer MEDICARE, OTHER, SELFPAY ==
--- NOTE | 2024-04-20 07:32 | DI.US.S_ITS ---
PROCEDURE: US ABDOMEN LIMITED INDICATIONS: RUQ PAIN TECHNIQUE: Real-time scanning was performed of the abdominal and retroperitoneal organs, with image documentation. COMPARISON: None. FINDINGS: Liver: Liver is normal in size and homogeneous in echotexture. Gallbladder: Cholelithiasis. No wall thickening. Positive sonographic Mueller sign. Non mobile stone in the gallbladder neck. Biliary ducts: Intrahepatic bile ducts are non-dilated. Extrahepatic bile duct caliber measures 5 mm. Normal is 6-7 mm or less in diameter, or 10 mm or less post-cholecystectomy. Pancreas: Visualized portions of the pancreas are sonographically normal. Miscellaneous: No free abdominal fluid. IMPRESSION: Cholelithiasis with right upper quadrant pain, suggestive of symptomatic cholelithiasis. Non mobile stone in the neck. Surgical referral is recommended. Dictated by: Guero Rodriguez M.D. on 04/20/2024 at 11:11 Approved by: Guero Rodriguez M.D. on 04/20/2024 at 11:14
== END ==
PROVIDERS: PCP Internal Medicine; Referring Provider Internal Medicine; Visit Provider Internal Medicine
DX: R10.11 Right upper quadrant pain (principal); K80.20 Calculus of gallbladder without cholecystitis without obstruction
CPT/HCPCS: 76705

== ENCOUNTER 2024-04-25 11:34 | Day surgery (SDC) | payer MEDICARE, OTHER, SELFPAY ==
[2024-04-22 08:02] VITALS: BMI 34.5
[2024-04-25] VITALS (11 sets, daily range): BP systolic 137–153; BP diastolic 77–99; PULSE 12–99; RESP 12–87; TEMP 36.2–36.8; O2SAT 94–100; BMI 34.5
--- NOTE | 2024-04-25 | DI.RAD.S_ITS ---
P operative report. ROCEDURE: XR CHOLANGIOGRAM OPERATIVE INDICATIONS: OR COMPARISON: [facility], US, US ABDOMEN LIMITED, 04/20/2024, 7:41. FINDINGS: Biliary ducts: The surgeon injected contrast into the biliary ducts after cannulation of the cystic duct stump. Visualized intra- and extrahepatic bile ducts are normal in caliber, without strictures. No intraluminal filling defects to suggest retained ductal stones or sludge. No evidence for iatrogenic ductal injury. Duodenum: Contrast flows promptly through the sphincter of Oddi into the duodenum, which appears normal in caliber. IMPRESSION: Intraoperative cholangiogram without extravasation. Please see real-time Dictated by: Emily Claros M.D. on 04/26/2024 at 14:41 Approved by: Emily Claros M.D. on 04/26/2024 at 14:42
--- NOTE | 2024-04-25 | PATH_ITS ---
[facility] Accession Number: [id number] No. of containers..01 Tissue . 01 Material submitted: . gallbladder - GALLBLADDER . 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 Negative for dysplasia and malignancy. [facility] 04/27/2024 1136 Local . 01 Electronically signed: . Raya Arias MD, Pathologist NPI- [id number] . 01 Gross description: . Received in formalin with two patient identifiers and gallbladder, is a beaver intact gallbladder, 9.4 x 3.2 x 2.4 cm, with an unremarkable external surface. A full thickness defect is identified at the fundus, 1.0 cm in greatest dimension. The cystic duct margin is inked blue, and no pericystic lymph node is identified. The lumen contains multiple black, roughened calculi up to 2.3 cm in greatest dimension admixed with dark green thick tenacious bile. The mucosa is beaver and trabecular with no yellow areas of discoloration, polyps, or lesions identified. The mobley average 0.3 cm thick, and escrow representative sections to include the cystic duct margin and full thickness sections are submitted in A1. ([id number]) /MRV 04/26/2024 2134 Local . 01 Pathologist provided ICD-10: K80.20 . 01 CPT . 180660 Specimen Comment: A courtesy copy of this report has been sent to [facility] Pathology Performed at: [address] [address], [place], [place] [id number] MD Gilmar Franklin MD Phone: [phone]
[2024-04-25] MEDS: LACTATED RINGERS 1,000 ML 42 ML IV ×2 (13:16→15:03)
[2024-04-25] MEDS: ACETAMINOPHEN 325 MG TABLET 975 MG PO (13:34)
--- NOTE | 2024-04-25 13:37 | PM.PREOP ---
Pre-operative Note Interval Note History & Physical reviewed/Exam performed by Physician: Yes Changes to H&P: No
[2024-04-25] MEDS: CEFAZOLIN 2 GM/100 ML PREMIX 100 ML IV (14:19)
--- NOTE | 2024-04-25 14:25 | SUR.OPER ---
Supine on padded OR bed, head on pillow, roght arm padded and tucked at side,left arm extended on padded arm board legs uncrossed, safety belt at thigh, tape over blanket over lower legs .
[2024-04-25] MEDS: BUPIVACAINE 0.5% W/ EPI (PF) 30 ML VIAL INJ (14:36)
[2024-04-25] MEDS: iopamidoL 30 ML VIAL INJ (14:38)
--- NOTE | 2024-04-25 15:27 | PM.OP.1 ---
Operative Date/Time/Diagnoses Date of procedure: 04/25/24 Time of procedure: 15:27 Pre-op diagnosis: Chronic calculous cholecystitis Post-op diagnosis: same Procedure & Clinicians Procedure: Laparoscopic cholecystectomy with cholangiography Same procedure as scheduled: Yes Indications: Chronic calculous cholecystitis Surgeon: Dimitri Diaz Click Yes if Unassisted: Yes Anesthesia Type: General Operative Notes Findings: Normal cholangiogram Closure Type: primary Specimen(s): other (Gallbladder and contents) Estimated Blood Loss (mL): 15 Procedure in detail: Consent was obtained. Patient was brought into the operating room suite. Patient was placed in the supine position with the arms out. General anesthesia was induced. Time-out was performed. The abdomen was prepped and draped in the usual fashion. Total of 30 mL of 0.5% Marcaine were infiltrated in all trocar sites. 5 mm optical trocar was placed in the left upper quadrant. Pneumoperitoneum was achieved. The abdomen was inspected. Abnormalities noted included adhesions to the gallbladder. 11 mm trocar placed in the umbilicus. Two additional 5 mm trocars were placed in the right upper quadrant. The gallbladder was grasped, retracted laterally and cephalad. The medial and lateral attachments of the gallbladder were opened revealing a critical view of the single cystic duct and single cystic artery. The artery was doubly clipped and divided. The duct was clipped at the junction of the infundibulum. A cystic ductotomy was made through which a cholangiogram was performed. Cholangiogram showed prompt emptying into the duodenal with bilateral intrahepatic ductal filling and no evidence of strictures or stones. Thus completed the cholangiography and the catheter was removed. Three clips were then applied to the cystic duct stump. Bovie electrocautery was used to remove the gallbladder from the liver bed. Hemostasis was achieved. The gallbladder was placed in an endo-pouch and brought out through the umbilical trocar. The umbilical trocar was closed with an 0 Vicryl on a Chucky-Beba suture Passer. Pneumoperitoneum was relieved. Skin was closed with 4-0 Monocryl and Dermabond. Patient tolerated procedure well was transferred to PACU in stable condition for anticipated same-day discharge. Complications: none Post-operative Condition: stable Disposition: PACU Plan for aftercare: Home
[2024-04-25] MEDS: KETOROLAC 30 MG/ML VIAL IV (15:33)
[2024-04-25] MEDS: ONDANSETRON 4 MG/2 ML INJ IV (15:37)
[2024-04-25] MEDS: OXYCODONE IR 5 MG TABLET PO (15:55)
[2024-04-25] MEDS: hydrOXYzine 50 MG/ML INJ 25 MG IM (16:15)
[2024-04-25] MEDS: DEXTROSE 5% WATER 1,000 ML 250 ML IV (16:32)
[2024-04-25] MEDS: DEXAMETHASONE 10 MG/ML VIAL 8 MG IV (16:39)
[2024-04-25] MEDS: METOCLOPRAMIDE 10 MG/2 ML INJ IV (17:02)
[2024-04-25] MEDS: SCOPOLAMINE 1 PATCH TOP (17:02)
== END 2024-04-25 17:59 | disposition home or self-care (01) ==
PROVIDERS: PCP Internal Medicine; Referring Provider Surgery; Visit Provider Surgery
PROC: 0FT44ZZ Resection of Gallbladder, Percutaneous Endoscopic Approach (ICD-10-PCS; CPT 47563; principal; 2024-04-25 13:30)
DX: K80.10 Calculus of gallbladder with chronic cholecystitis without obstruction (principal)
CPT/HCPCS: 47563; 74300; J0330; J0690; J1100; J1885; J2405; J2704; J2765; J3410; Q9967